=== PATIENT | female | born 1980 ===

== ENCOUNTER 2022-05-12 16:45 | Outpatient (REF) | payer MEDICAID, SELFPAY ==
[2022-05-12 22:01] LABS: HCT 38.6 % (36.0-46.0); HGB 12.5 g/dL (11.2-15.7); MCH 30.6 pg (27.0-33.0); MCHC 32.4 % (32.0-36.0); MCV 95 fL (80-95); MPV 10.4 fL (8.0-11.0); Platelet Count 341 10^3/uL (130-400); RBC 4.08 10^6/uL (3.93-5.22); RDW 12.1 % (11.7-14.6); RDW-SD 42.5 fL; WBC 9.24 10^3/uL (4.4-10.8)
[2022-05-12 22:14] LABS: ALT 21 U/L (14-59); AST 21 U/L (15-37); Albumin 4.3 g/dL (3.4-5.0); Alkaline Phosphatase 46 U/L (46-116); Anion Gap 2.2 mmol/L (3-11); BUN 9 mg/dL (7-18); Bilirubin, Total 1.1 mg/dL (0.2-1.0); CO2 30.8 mmol/L (21.0-32.0); CREATININE 0.9 mg/dL (0.55-1.02); Calcium 8.9 mg/dL (8.5-10.1); Chloride 102 mmol/L (98-107); Estimated GFR 82.88 (mL/min/1.73m2); Glucose 99 mg/dL (74-106); Potassium 3.5 mmol/L (3.5-5.1); Sodium 135 mmol/L (136-145); TSH (W/Ref FT4) 1.31 uIU/mL (0.36-3.74); Total Protein 7.8 g/dL (6.4-8.2)
== END 2022-05-12 16:46 | disposition home or self-care (01) ==
LOC: NCHCN 16:45
PROVIDERS: Visit Provider Family Medicine
DX: R14.0 Abdominal distension (gaseous) (principal); R10.9 Unspecified abdominal pain
CPT/HCPCS: 80053; 85027; 84443

== ENCOUNTER 2022-07-12 16:28 | Outpatient (REF) | payer MEDICAID, SELFPAY ==
--- NOTE | 2022-07-12 16:00 | PAPFT_PTH ---
PATIENT: Ellie Sanabria LOC: [facility]#:[id number] AGE/SX: 41/F ROOM: RE07/12/[address]: Wendy Nguyen : 1980 BED: DIS: 07/12/2022 SPEC #: [id number] RECD: 07/13/22 12:56 STATUS: LALO CYR #: [id number] SIRI: 07/12/22 16:[address]: Mandy Flores DEPT: [facility] Cytology RECD BY: Esme Carrero Tissues: 1 - CX/ENDOCX FOR PAP SMEARS Procedures: PAP THIN PREP/[facility] Screening HPV DNA PROBE Comments: [id number] (CHLAMYDIA/GC)
[2022-07-14 13:14] LABS: Chlamydia Result Negative (Negative); GC Result Negative (Negative)
== END 2022-07-12 16:29 | disposition home or self-care (01) ==
LOC: NCHCN 16:28
PROVIDERS: PCP Nurse Practitioner Family; Visit Provider Family Medicine
DX: Z11.3 Encounter for screening for infections with a predominantly sexual mode of transmission (principal); Z12.4 Encounter for screening for malignant neoplasm of cervix; Z11.51 Encounter for screening for human papillomavirus (HPV)
CPT/HCPCS: 87491; 87591; 88142; 87624

== ENCOUNTER 2022-07-26 14:32 | Outpatient (REF) | payer MEDICAID, SELFPAY | END 2022-07-26 14:33 | disposition home or self-care (01) | LOC: NCHCN 14:32 | PROVIDERS: PCP Nurse Practitioner Family; Visit Provider Nurse Practitioner Family | DX: R30.0 Dysuria (principal) | CPT/HCPCS: 87086 ==